=== PATIENT | male | born 1960 | race Caucasian/White ===

== ENCOUNTER 2019-11-20 15:41 | Emergency (ER) | payer OTHER ==
[~2019-11-20] VITALS: Ht 175.3 cm; Wt 73.6 kg
[2019-11-20] MEDS ORDERED: MULT1TAB61 PO (16:15)
[2019-11-20] MEDS ORDERED: THIAMINE HCL 100 MG TABLET PO ONE (16:30)
[2019-11-20] MEDS ORDERED: FOLIC ACID 1 MG TABLET PO ONE (16:30)
[2019-11-20 16:33] LABS: BASOPHILS % (AUTO) 0.8 % (0.0-2.0); EOSINOPHILS % (AUTO) 0.3 % (1.0-6.0); HEMATOCRIT 37.6 % (41-53); LYMPHOCYTES # (AUTO) 2.2 K/uL (1.0-4.8); LYMPHOCYTES % (AUTO) 22.3 % (22.0-44.0); MEAN CORPUSCULAR HEMOGLOBIN 32.3 pg (26.0-34.0); MEAN CORPUSCULAR HGB CONC 34.5 G/dL (31.0-37.0); MEAN CORPUSCULAR VOLUME 94 fL (80-100); MONOCYTES # (AUTO) 0.8 K/uL (0.1-1.0); MONOCYTES % (AUTO) 8.5 % (2.0-9.0); NEUTROPHILS # (AUTO) 6.7 K/uL (1.8-7.7); NEUTROPHILS % (AUTO) 68.1 % (40.0-70.0); PLATELET COUNT (AUTO) 428 K/uL (150-450); RED BLOOD CELL COUNT(AUTO) 4.02 MIL/uL (4.50-5.90); RED CELL DISTRIBUTION WIDTH 14.9 % (11.5-14.5)
[2019-11-20 16:43] LABS: ANION GAP 13 mmol/L (8-16); CALCIUM, TOTAL 8.5 mg/dL (8.8-10.5); CARBON DIOXIDE 26 mmol/L (22-29); CHLORIDE 103 mmol/L (98-107); CREATININE 0.55 mg/dL (0.60-1.30); GLOMERULAR FILTR. RATE CALC > 60 mL/min (>60); GLUCOSE,RANDOM 67 mg/dL (70-110); POTASSIUM 3.6 mmol/L (3.5-5.1); SODIUM SERUM 142 mmol/L (136-145); UREA NITROGEN, BLOOD 10 mg/dL (7-18)
[2019-11-20 16:49] LABS: ALANINE AMINOTRANSFERASE 51 U/L (12-78); ALBUMIN 3.2 g/dL (3.4-5.0); ALKALINE PHOSPHATASE 74 U/L (46-116); ASPARTATE AMINOTRANSFERASE 52 U/L (15-37); BILIRUBIN,TOTAL 0.5 mg/dL (0.1-1.0); TOTAL PROTEIN, SERUM 7.1 g/dL (6.4-8.2)
[2019-11-20 20:07] VITALS: BP 100/65
== END 2019-11-20 21:06 | disposition home or self-care (01) ==
LOC: EMS 15:41
DX: F10.129 Alcohol abuse with intoxication, unspecified (principal); F17.210 Nicotine dependence, cigarettes, uncomplicated; Z88.0 Allergy status to penicillin; Y90.7 Blood alcohol level of 200-239 mg/100 ml
CPT/HCPCS: 80053; 85025; 99283; G0480

== ENCOUNTER 2020-02-26 11:16 | Emergency (ER) | payer OTHER ==
[~2020-02-26] VITALS: Ht 175.3 cm; Wt 75.0 kg
[~2020-02-26 11:16] MED LIST: MULT1TAB61 PO
[2020-02-26] MEDS ORDERED: SODIUM CHLORIDE 0.9% 1,000 ML IV ONE (14:45)
[2020-02-26] MEDS ORDERED: LORazepam 2 MG/ML VIAL IM ONE (15:00)
[2020-02-26 15:14] LABS: BASOPHILS % (AUTO) 0.7 % (0.0-2.0); EOSINOPHILS % (AUTO) 0.1 % (1.0-6.0); HEMATOCRIT 48.3 % (41-53); HEMOGLOBIN 16.6 g/dL (13.5-17.5); LYMPHOCYTES # (AUTO) 2.6 K/uL (1.0-4.8); LYMPHOCYTES % (AUTO) 16.8 % (22.0-44.0); MEAN CORPUSCULAR HEMOGLOBIN 31.3 pg (26.0-34.0); MEAN CORPUSCULAR HGB CONC 34.4 G/dL (31.0-37.0); MEAN CORPUSCULAR VOLUME 91 fL (80-100); MONOCYTES # (AUTO) 0.8 K/uL (0.1-1.0); MONOCYTES % (AUTO) 5.4 % (2.0-9.0); NEUTROPHILS # (AUTO) 12.1 K/uL (1.8-7.7); PLATELET COUNT (AUTO) 270 K/uL (150-450); RED BLOOD CELL COUNT(AUTO) 5.31 MIL/uL (4.50-5.90); RED CELL DISTRIBUTION WIDTH 13.2 % (11.5-14.5)
[2020-02-26 15:34] LABS: PROTHROMBIN TIME 9.9 SEC (9.4-11.6)
[2020-02-26 15:38] LABS: ANION GAP 15 mmol/L (8-16); CALCIUM, TOTAL 9.7 mg/dL (8.8-10.5); CARBON DIOXIDE 27 mmol/L (22-29); CHLORIDE 103 mmol/L (98-107); CREATININE 0.74 mg/dL (0.60-1.30); GLOMERULAR FILTR. RATE CALC > 60 mL/min (>60); GLUCOSE,RANDOM 83 mg/dL (70-110); POTASSIUM 3.8 mmol/L (3.5-5.1); SODIUM SERUM 145 mmol/L (136-145); UREA NITROGEN, BLOOD 18 mg/dL (7-18)
[2020-02-26 15:52] LABS: B-TYPE NATRIURETIC PEPTIDE 5 pg/mL (0-100)
[2020-02-26 16:03] LABS: ALANINE AMINOTRANSFERASE 51 U/L (12-78); ALBUMIN 5.1 g/dL (3.4-5.0); ALKALINE PHOSPHATASE 77 U/L (46-116); ASPARTATE AMINOTRANSFERASE 66 U/L (15-37); BILIRUBIN,TOTAL 0.7 mg/dL (0.1-1.0); CREATINE KINASE, TOTAL ONLY 280 U/L (39-308); TOTAL PROTEIN, SERUM 9.2 g/dL (6.4-8.2)
[2020-02-26 17:48] VITALS: BP 125/65
[2020-02-26 18:07] LABS: APPEARANCE,URINE CLEAR (CLEAR); BILIRUBIN,URINE NEGATIVE (NEGATIVE); GLUCOSE, URINE (UA) NEGATIVE (NEGATIVE); KETONES,URINE 40 mg/dL (NEGATIVE); LEUKOCYTE ESTERASE ,URINE NEGATIVE (NEGATIVE); NITRATE,URINE NEGATIVE (NEGATIVE); OCCULT BLOOD,URINE NEGATIVE (NEGATIVE); PROTEIN,URINE POS 1+ (NEGATIVE)
[2020-02-26 18:09] LABS: AMPHET/METH SCREEN,URINE NEGATIVE (NEGATIVE); BARBITURATE SCREEN, URINE NEGATIVE (NEGATIVE); BENZODIAZEPINES SCREEN,URINE NEGATIVE (NEGATIVE); CANNABINOID SCREEN,URINE POSITIVE (NEGATIVE); COCAINE SCREEN,URINE NEGATIVE (NEGATIVE); METHADONE SCREEN, URINE NEGATIVE (NEGATIVE); OPIATE SCREEN,URINE NEGATIVE (NEGATIVE)
[2020-02-26 18:13] LABS: PHENCYCLIDINE SCREEN,URINE NEGATIVE (NEGATIVE)
[2020-02-26 18:32] LABS: BACTERIA,URINE None Seen /HPF (None Seen); RBC,URINE None Seen /HPF (0-2); SQUAMOUS EPITHELIAL CELL,UR None Seen /LPF (None Seen); WBC,URINE None Seen /HPF (0-5)
== END 2020-02-26 18:38 | disposition left against medical advice (07) ==
LOC: EMS 11:16
DX: F10.129 Alcohol abuse with intoxication, unspecified (principal); R79.1 Abnormal coagulation profile; R79.89 Other specified abnormal findings of blood chemistry; D72.829 Elevated white blood cell count, unspecified; F17.210 Nicotine dependence, cigarettes, uncomplicated; Y90.8 Blood alcohol level of 240 mg/100 ml or more
CPT/HCPCS: 36415; 71045; 80053; 80307; 81001; 82550; 83880; 84484; 85025; 85610; 85730; 93005; 96372; 99285; G0480; J2060; J7030

== ENCOUNTER 2022-08-18 07:47 | Emergency (ER) | payer MEDICARE, OTHER ==
[~2022-08-18] VITALS: Ht 170.2 cm; Wt 81.8 kg
[2022-08-18 12:38] VITALS: BP 148/93
== END 2022-08-18 14:24 | disposition home or self-care (01) ==
LOC: EMS 07:54
DX: F10.229 Alcohol dependence with intoxication, unspecified (principal); F17.210 Nicotine dependence, cigarettes, uncomplicated
CPT/HCPCS: 99283

== ENCOUNTER 2023-10-22 13:47 | Emergency (ER) | payer OTHER, MEDICARE ==
[~2023-10-22] VITALS: Ht 175.3 cm; Wt 72.7 kg
[2023-10-22 13:55] VITALS: BP 129/98; PULSE 106; RESP 20; TEMP 98.2
[2023-10-22 14:11] LABS: GLUCOMETER DEV NAME(LOC) ERT.5; GLUCOSE,POINT OF CARE 98 MG/DL (70-110)
== END 2023-10-22 14:39 | disposition still patient (30) ==
LOC: EMS 13:49
DX: F10.90 Alcohol use, unspecified, uncomplicated (principal); Z53.21 Procedure and treatment not carried out due to patient leaving prior to being seen by health care provider; Y90.9 Presence of alcohol in blood, level not specified
CPT/HCPCS: 82962; 99281

== ENCOUNTER 2023-10-22 17:46 | Emergency (ER) | payer OTHER ==
[~2023-10-22] VITALS: Ht 175.3 cm; Wt 72.7 kg
[2023-10-22 18:04] VITALS: TEMP 98.2
[2023-10-22] MEDS ORDERED: SODIUM CHLORIDE 0.9% 1,000 ML IV ONE (18:15)
[2023-10-22 19:43] LABS: ANION GAP 17 mmol/L (8-16); CALCIUM, TOTAL 9.2 mg/dL (8.8-10.5); CARBON DIOXIDE 20 mmol/L (22-29); CHLORIDE 108 mmol/L (98-107); CREATININE 0.61 mg/dL (0.60-1.30); GLOMERULAR FILTR. RATE CALC > 60 mL/min (>60); GLUCOSE,RANDOM 85 mg/dL (70-110); POTASSIUM 3.5 mmol/L (3.5-5.1); SODIUM SERUM 145 mmol/L (136-145); UREA NITROGEN, BLOOD 17 mg/dL (7-18)
[2023-10-22 19:49] LABS: ALANINE AMINOTRANSFERASE 14 U/L (12-78); ALBUMIN 3.9 g/dL (3.4-5.0); ALKALINE PHOSPHATASE 83 U/L (46-116); ASPARTATE AMINOTRANSFERASE 26 U/L (15-37); BILIRUBIN,TOTAL 0.2 mg/dL (0.1-1.0); TOTAL PROTEIN, SERUM 7.3 g/dL (6.4-8.2)
[2023-10-22 19:53] LABS: ALCOHOL, BLOOD (SERUM) 267 mg/dL (0-10)
[2023-10-22 20:32] VITALS: BP 128/68; PULSE 76; RESP 14
[2023-10-22 21:43] LABS: APPEARANCE,URINE CLEAR (CLEAR); BILIRUBIN,URINE NEGATIVE (NEGATIVE); COLOR,URINE COLORLESS (YELLOW); GLUCOSE, URINE (UA) NEGATIVE (NEGATIVE); KETONES,URINE NEGATIVE (NEGATIVE); LEUKOCYTE ESTERASE ,URINE NEGATIVE (NEGATIVE); NITRATE,URINE NEGATIVE (NEGATIVE); OCCULT BLOOD,URINE NEGATIVE (NEGATIVE); PROTEIN,URINE NEGATIVE (NEGATIVE); SPECIFIC GRAVITIY, URINE 1.009 (1.003-1.030); UROBILINOGEN,URINE <=1.0 mg/dL (<=1.0)
[2023-10-22 21:50] LABS: ALCOHOL, URINE DRUG SCREEN POSITIVE (NEGATIVE); AMPHET/METH SCREEN,URINE NEGATIVE (NEGATIVE); BARBITURATE SCREEN, URINE NEGATIVE (NEGATIVE); BENZODIAZEPINES SCREEN,URINE NEGATIVE (NEGATIVE); CANNABINOID SCREEN,URINE POSITIVE (NEGATIVE); COCAINE SCREEN,URINE NEGATIVE (NEGATIVE); METHADONE SCREEN, URINE NEGATIVE (NEGATIVE); OPIATE SCREEN,URINE NEGATIVE (NEGATIVE); PHENCYCLIDINE SCREEN,URINE NEGATIVE (NEGATIVE)
== END 2023-10-22 22:09 | disposition home or self-care (01) ==
LOC: EMS 17:47
DX: F10.229 Alcohol dependence with intoxication, unspecified (principal); I10 Essential (primary) hypertension; F17.210 Nicotine dependence, cigarettes, uncomplicated; Z88.0 Allergy status to penicillin; Y90.9 Presence of alcohol in blood, level not specified
CPT/HCPCS: 99283; 96360; 80053; 81003; 83735; 36415; 80307; J7030; G0480

== ENCOUNTER 2024-08-02 11:19 | Emergency (ER) | payer MEDICARE, OTHER ==
[~2024-08-02] VITALS: Ht 175.3 cm; Wt 75.0 kg
[2024-08-02 11:28] VITALS: TEMP 97.6
[2024-08-02 12:45] LABS: ANION GAP 17 mmol/L (8-16); CALCIUM, TOTAL 8.6 mg/dL (8.8-10.5); CARBON DIOXIDE 24 mmol/L (22-29); CHLORIDE 99 mmol/L (98-107); CREATININE 0.55 mg/dL (0.60-1.30); GLOMERULAR FILTR. RATE CALC > 60 mL/min (>60); GLUCOSE,RANDOM 116 mg/dL (70-110); POTASSIUM 3.9 mmol/L (3.5-5.1); SODIUM SERUM 140 mmol/L (136-145); UREA NITROGEN, BLOOD 24 mg/dL (7-18)
[2024-08-02 13:05] LABS: ALCOHOL, BLOOD (SERUM) 378 mg/dL (0-10)
[2024-08-02 13:09] LABS: BASOPHILS % (AUTO) 0.1 % (0.0-2.0); EOSINOPHILS % (AUTO) 0 % (1.0-6.0); HEMATOCRIT 48.4 % (41-53); HEMOGLOBIN 16.7 g/dL (13.5-17.5); LYMPHOCYTES # (AUTO) 1.1 K/uL (1.0-4.8); LYMPHOCYTES % (AUTO) 7.5 % (22.0-44.0); MEAN CORPUSCULAR HEMOGLOBIN 32.4 pg (26.0-34.0); MEAN CORPUSCULAR HGB CONC 34.4 G/dL (31.0-37.0); MEAN CORPUSCULAR VOLUME 94 fL (80-100); MONOCYTES # (AUTO) 1.2 K/uL (0.1-1.0); MONOCYTES % (AUTO) 8.4 % (2.0-9.0); NEUTROPHILS # (AUTO) 12.2 K/uL (1.8-7.7); PLATELET COUNT (AUTO) 280 K/uL (150-450); RED BLOOD CELL COUNT(AUTO) 5.15 MIL/uL (4.50-5.90); RED CELL DISTRIBUTION WIDTH 13.8 % (11.5-14.5); WHITE BLOOD COUNT (AUTO) 14.6 K/uL (4.5-11.0)
[2024-08-02 14:00] VITALS: BP 140/94; PULSE 109; RESP 15; O2SAT 98
== END 2024-08-02 17:55 | disposition home or self-care (01) ==
LOC: EMS 11:19
DX: F10.229 Alcohol dependence with intoxication, unspecified (principal); F17.210 Nicotine dependence, cigarettes, uncomplicated; I10 Essential (primary) hypertension; Z88.0 Allergy status to penicillin; Y90.8 Blood alcohol level of 240 mg/100 ml or more
CPT/HCPCS: 99283; 80048; 85025; 36415; G0480

== ENCOUNTER 2024-10-17 13:07 | Emergency (ER) | payer MEDICARE, OTHER ==
[~2024-10-17] VITALS: Ht 170.2 cm; Wt 75.0 kg
[2024-10-17 13:16] VITALS: TEMP 98.2
[2024-10-17] MEDS: BACITRACIN 0.9 GM PACKET OINTMENT TP ONE (15:46)
[2024-10-17 16:58] VITALS: BP 129/74; PULSE 68; RESP 17; O2SAT 98
== END 2024-10-17 20:07 | disposition home or self-care (01) ==
LOC: EMS 13:07
DX: S00.01XA Abrasion of scalp, initial encounter (principal); E11.9 Type 2 diabetes mellitus without complications; I10 Essential (primary) hypertension; F17.210 Nicotine dependence, cigarettes, uncomplicated; Z88.0 Allergy status to penicillin; W22.8XXA Striking against or struck by other objects, initial encounter; Y93.89 Activity, other specified; Y92.89 Other specified places as the place of occurrence of the external cause; Y99.8 Other external cause status
CPT/HCPCS: 70450; 72125; 82962; 99284

== ENCOUNTER 2025-01-07 15:20 | Inpatient (IN) | payer MEDICARE, OTHER ==
[~2025-01-07] VITALS: Ht 167.6 cm; Wt 60.0 kg
[~2025-01-07 15:20] MED LIST changes: +ACET-2247 PO; +CYAN500T77 PO; +DOCU-385 PO; +FOLI-130 PO; +MAGN-169 PO; +METO25 PO; +MULT-1303 PO; -MULT1TAB61 PO; +PANT-31 PO; +SENN-376 PO; +THIA100T80 PO
[2025-01-07] MEDS: SODIUM CHLORIDE 0.9% 1,000 ML IV ONE ×2 (19:30→22:59)
[2025-01-07 19:42] LABS: BASOPHILS % (AUTO) 0.4 % (0.0-2.0); EOSINOPHILS % (AUTO) 0.3 % (1.0-6.0); HEMATOCRIT 41.6 % (41-53); HEMOGLOBIN 14.2 g/dL (13.5-17.5); LYMPHOCYTES % (AUTO) 12.8 % (22.0-44.0); MEAN CORPUSCULAR HEMOGLOBIN 31.9 pg (26.0-34.0); MEAN CORPUSCULAR VOLUME 94 fL (80-100); NEUTROPHILS # (AUTO) 5.5 K/uL (1.8-7.7); NEUTROPHILS % (AUTO) 73.5 % (40.0-70.0); PLATELET COUNT (AUTO) 247 K/uL (150-450); RED BLOOD CELL COUNT(AUTO) 4.44 MIL/uL (4.50-5.90); RED CELL DISTRIBUTION WIDTH 13.3 % (11.5-14.5); WHITE BLOOD COUNT (AUTO) 7.5 K/uL (4.5-11.0)
[2025-01-07 19:53] LABS: ANION GAP 10 mmol/L (8-16); CALCIUM, TOTAL 8.5 mg/dL (8.8-10.5); CARBON DIOXIDE 27 mmol/L (22-29); CHLORIDE 103 mmol/L (98-107); CREATININE 0.48 mg/dL (0.60-1.30); GLOMERULAR FILTR. RATE CALC > 60 mL/min (>60); GLUCOSE,RANDOM 95 mg/dL (70-110); POTASSIUM 3.8 mmol/L (3.5-5.1); SODIUM SERUM 140 mmol/L (136-145); UREA NITROGEN, BLOOD 11 mg/dL (7-18)
[2025-01-07 19:59] LABS: ALBUMIN 3.2 g/dL (3.4-5.0); BILIRUBIN,DIRECT 0.2 mg/dL (0.00-0.20); BILIRUBIN,TOTAL 0.4 mg/dL (0.1-1.0); TOTAL PROTEIN, SERUM 7.1 g/dL (6.4-8.2)
[2025-01-07 20:06] LABS: TROPONIN I-HIGH SENSITIVITY 413 ng/L (<76)
[2025-01-07 20:23] LABS: ALCOHOL, BLOOD (SERUM) 276 mg/dL (0-10)
[2025-01-07] MEDS ORDERED: APIX5TAB PO (21:58)
[2025-01-07] MEDS ORDERED: SENNOSIDES 8.6 MG TABLET PO PRN (22:00)
[2025-01-07] MEDS ORDERED: DOCUSATE SODIUM 100 MG CAPSULE PO PRN (22:00)
[2025-01-07] MEDS ORDERED: MAGNESIUM HYDROXIDE SUSPENSION 30 ML UDCUP PO PRN (22:00)
[2025-01-07 22:38] LABS: TROPONIN I-HIGH SENSITIVITY 420 ng/L (<76)
[2025-01-07 22:40] LABS: LACTIC ACID 2.2 mmol/L (0.4-2.0)
[2025-01-07] MEDS: CefTRIAXone 1 GM/DEXTROSE 50 ML IV ONE (22:45)
[2025-01-07] MEDS ORDERED: SODIUM CHLORIDE 0.9% 100 ML ONE (22:53)
[2025-01-07] MEDS ORDERED: IOHEXOL 350 MG/ML 100 ML VIAL ONE (22:53)
[2025-01-07] MEDS: ASPIRIN 81 MG CHEWABLE TABLET PO ONE (22:58)
[2025-01-07] MEDS: AZITHROMYCIN 500 MG/NS 250 ML IV ONE (22:59)
[2025-01-07] MEDS: METOPROLOL TARTRATE 25 MG TABLET PO SCH (23:31)
[2025-01-08 00:31] LABS: TROPONIN I-HIGH SENSITIVITY 387 ng/L (<76)
[2025-01-08 02:45] VITALS: BP 143/81; PULSE 95; RESP 20; TEMP 99.3; O2SAT 94
[2025-01-08] MEDS: LORazepam 2 MG TABLET PO PRN ×2 (02:50→23:59)
[2025-01-08] MEDS: 1: MAGNESIUM SULFATE 2 GM, MVI, ADULT NO.1 WITH VIT K 10 ML, THIAMINE 100 MG, FOLIC ACID IV SCH ×2 (02:58→09:26)
[2025-01-08] MEDS: CLINDAMYCIN 300 MG/D5% WATER 50 ML IV SCH (03:18)
[2025-01-08 04:08] LABS: APPEARANCE,URINE CLEAR (CLEAR); BILIRUBIN,URINE NEGATIVE (NEGATIVE); COLOR,URINE LIGHT YELLOW (YELLOW); GLUCOSE, URINE (UA) NEGATIVE (NEGATIVE); LEUKOCYTE ESTERASE ,URINE NEGATIVE (NEGATIVE); NITRATE,URINE NEGATIVE (NEGATIVE); OCCULT BLOOD,URINE NEGATIVE (NEGATIVE); PH,URINE 6.5 (5.0-8.0); PH,URINE DRUG SCREEN 6.5 (5.0-8.0); PROTEIN,URINE NEGATIVE (NEGATIVE); SPECIFIC GRAVITIY, URINE 1.037 (1.003-1.030); UROBILINOGEN,URINE <=1.0 mg/dL (<=1.0)
[2025-01-08 04:15] LABS: ALCOHOL, URINE DRUG SCREEN POSITIVE (NEGATIVE); AMPHET/METH SCREEN,URINE NEGATIVE (NEGATIVE); BARBITURATE SCREEN, URINE NEGATIVE (NEGATIVE); BENZODIAZEPINES SCREEN,URINE NEGATIVE (NEGATIVE); CANNABINOID SCREEN,URINE POSITIVE (NEGATIVE); COCAINE SCREEN,URINE NEGATIVE (NEGATIVE); METHADONE SCREEN, URINE NEGATIVE (NEGATIVE); OPIATE SCREEN,URINE NEGATIVE (NEGATIVE); PHENCYCLIDINE SCREEN,URINE NEGATIVE (NEGATIVE)
[2025-01-08 05:59] LABS: BASOPHILS % (AUTO) 0.4 % (0.0-2.0); EOSINOPHILS % (AUTO) 0.1 % (1.0-6.0); HEMATOCRIT 34.7 % (41-53); HEMOGLOBIN 12.1 g/dL (13.5-17.5); LYMPHOCYTES # (AUTO) 0.9 K/uL (1.0-4.8); LYMPHOCYTES % (AUTO) 9.7 % (22.0-44.0); MEAN CORPUSCULAR HEMOGLOBIN 32.2 pg (26.0-34.0); MEAN CORPUSCULAR HGB CONC 34.7 G/dL (31.0-37.0); MEAN CORPUSCULAR VOLUME 93 fL (80-100); MONOCYTES # (AUTO) 1.5 K/uL (0.1-1.0); NEUTROPHILS # (AUTO) 6.9 K/uL (1.8-7.7); NEUTROPHILS % (AUTO) 73.8 % (40.0-70.0); PLATELET COUNT (AUTO) 199 K/uL (150-450); RED BLOOD CELL COUNT(AUTO) 3.74 MIL/uL (4.50-5.90); WHITE BLOOD COUNT (AUTO) 9.4 K/uL (4.5-11.0)
[2025-01-08 06:06] LABS: ANION GAP 8 mmol/L (8-16); CARBON DIOXIDE 27 mmol/L (22-29); CHLORIDE 101 mmol/L (98-107); CREATININE 0.46 mg/dL (0.60-1.30); GLOMERULAR FILTR. RATE CALC > 60 mL/min (>60); GLUCOSE,RANDOM 74 mg/dL (70-110); POTASSIUM 3.5 mmol/L (3.5-5.1); SODIUM SERUM 136 mmol/L (136-145); UREA NITROGEN, BLOOD 7 mg/dL (7-18)
[2025-01-08] MEDS: LORazepam 2 MG TABLET PO SCH (08:36)
[2025-01-08] MEDS: FOLIC ACID 1 MG TABLET PO SCH (08:37)
[2025-01-08] MEDS: APIXABAN 5 MG TABLET PO SCH (08:37)
[2025-01-08] MEDS: MULTIVITAMINS WITH MINERALS, THERAPEUTIC TABLET PO SCH (08:37)
[2025-01-08] MEDS: THIAMINE 100 MG TABLET PO SCH (08:37)
[2025-01-08] MEDS: PANTOPRAZOLE SODIUM 40 MG DR TABLET PO SCH (08:38)
[2025-01-08] MEDS: CYANOCOBALAMIN 500 MCG TABLET PO SCH (08:38)
[2025-01-08 09:05] VITALS: BP_SYST 136; BP_DIAS 7; BP_DIAS 72; PULSE 96; RESP 18; TEMP 98.9; O2SAT 93
[2025-01-08 11:12] VITALS: BP 139/79; PULSE 87; RESP 18; TEMP 98.8; O2SAT 92
[2025-01-08 16:14] VITALS: BP 134/75; PULSE 94; RESP 17; TEMP 98.1; O2SAT 93
[2025-01-08] MEDS: ASPIRIN 81 MG CHEWABLE TABLET PO SCH (20:13)
[2025-01-08 20:14] VITALS: BP 137/86; PULSE 97; RESP 18; TEMP 98.2; O2SAT 97
[2025-01-08] MEDS: NYSTATIN 15 GM POWDER BOTTLE TP SCH (20:14)
[2025-01-08] MEDS: ACETAMINOPHEN 325 MG TABLET PO PRN (23:07)
[2025-01-08 23:59] VITALS: BP 146/89; PULSE 92; RESP 18; TEMP 98.6; O2SAT 98
[2025-01-09 03:46] VITALS: BP 132/95; PULSE 91; RESP 19; TEMP 98.5; O2SAT 95
[2025-01-09 07:07] VITALS: BP 142/91; PULSE 90; RESP 18; TEMP 98.2; O2SAT 96
[2025-01-09 07:56] LABS: BASOPHILS % (AUTO) 0.3 % (0.0-2.0); EOSINOPHILS % (AUTO) 0.5 % (1.0-6.0); HEMATOCRIT 38.2 % (41-53); LYMPHOCYTES # (AUTO) 1.2 K/uL (1.0-4.8); LYMPHOCYTES % (AUTO) 17.3 % (22.0-44.0); MEAN CORPUSCULAR HEMOGLOBIN 31.8 pg (26.0-34.0); MEAN CORPUSCULAR HGB CONC 34.1 G/dL (31.0-37.0); MEAN CORPUSCULAR VOLUME 93 fL (80-100); MONOCYTES % (AUTO) 15.2 % (2.0-9.0); NEUTROPHILS # (AUTO) 4.5 K/uL (1.8-7.7); NEUTROPHILS % (AUTO) 66.7 % (40.0-70.0); PLATELET COUNT (AUTO) 175 K/uL (150-450); RED BLOOD CELL COUNT(AUTO) 4.09 MIL/uL (4.50-5.90); RED CELL DISTRIBUTION WIDTH 13.4 % (11.5-14.5); WHITE BLOOD COUNT (AUTO) 6.8 K/uL (4.5-11.0)
[2025-01-09 08:12] LABS: ANION GAP 7 mmol/L (8-16); CALCIUM, TOTAL 8.8 mg/dL (8.8-10.5); CARBON DIOXIDE 26 mmol/L (22-29); CHLORIDE 102 mmol/L (98-107); CREATININE 0.53 mg/dL (0.60-1.30); GLOMERULAR FILTR. RATE CALC > 60 mL/min (>60); GLUCOSE,RANDOM 103 mg/dL (70-110); POTASSIUM 3.8 mmol/L (3.5-5.1); SODIUM SERUM 135 mmol/L (136-145); UREA NITROGEN, BLOOD 9 mg/dL (7-18)
[2025-01-09 08:44] LABS: CREATINE KINASE, TOTAL ONLY 121 U/L (39-308)
[2025-01-09 11:02] VITALS: BP 132/89; PULSE 89; RESP 18; TEMP 98.3; O2SAT 96
[2025-01-09] MEDS ORDERED: APIX5TAB PO (12:55)
[2025-01-09] MEDS ORDERED: METO25 PO (12:55)
[2025-01-09] MEDS ORDERED: CLIN300C58 PO (12:55)
[2025-01-09] MEDS ORDERED: FOLI-130 PO (12:55)
[2025-01-09] MEDS ORDERED: MULT-1303 PO (12:55)
[2025-01-09] MEDS ORDERED: ASPI-1450 PO (12:55)
[2025-01-09 16:15] VITALS: BP 136/88; PULSE 91; RESP 18; TEMP 98; O2SAT 95
[2025-01-09 19:24] VITALS: BP 140/95; PULSE 97; RESP 17; TEMP 98.1; O2SAT 99
[2025-01-09] MEDS: METOPROLOL TARTRATE 25 MG TABLET PO SCH (20:47)
[2025-01-10 00:01] VITALS: BP 150/86; PULSE 81; RESP 16; TEMP 97.7; O2SAT 96
[2025-01-10 04:01] VITALS: BP 125/85; PULSE 87; RESP 17; TEMP 98.4; O2SAT 98
[2025-01-10] MEDS ORDERED: LORazepam 1 MG TABLET PO PRN (07:00)
[2025-01-10 07:32] VITALS: BP 121/98; PULSE 115; RESP 18; TEMP 97.9; O2SAT 98
[2025-01-10] MEDS: LORazepam 1 MG TABLET PO SCH (08:41)
[2025-01-10 12:00] VITALS: BP 129/81; PULSE 91; RESP 18; TEMP 98.1; O2SAT 98
[2025-01-10 15:31] VITALS: BP 111/82; PULSE 103; RESP 19; TEMP 97.7; O2SAT 98
[2025-01-10 15:57] LABS: ANION GAP 6 mmol/L (8-16); CALCIUM, TOTAL 9.4 mg/dL (8.8-10.5); CARBON DIOXIDE 26 mmol/L (22-29); CHLORIDE 102 mmol/L (98-107); CREATININE 1.02 mg/dL (0.60-1.30); GLOMERULAR FILTR. RATE CALC > 60 mL/min (>60); GLUCOSE,RANDOM 126 mg/dL (70-110); POTASSIUM 4.2 mmol/L (3.5-5.1); SODIUM SERUM 134 mmol/L (136-145); UREA NITROGEN, BLOOD 7 mg/dL (7-18)
[2025-01-10 16:18] LABS: BASOPHILS % (AUTO) 0.3 % (0.0-2.0); EOSINOPHILS % (AUTO) 0.8 % (1.0-6.0); HEMATOCRIT 41.4 % (41-53); LYMPHOCYTES # (AUTO) 1.1 K/uL (1.0-4.8); LYMPHOCYTES % (AUTO) 15.2 % (22.0-44.0); MEAN CORPUSCULAR HEMOGLOBIN 31.4 pg (26.0-34.0); MEAN CORPUSCULAR HGB CONC 33.7 G/dL (31.0-37.0); MEAN CORPUSCULAR VOLUME 93 fL (80-100); MONOCYTES % (AUTO) 13.9 % (2.0-9.0); NEUTROPHILS % (AUTO) 69.8 % (40.0-70.0); PLATELET COUNT (AUTO) 203 K/uL (150-450); RED BLOOD CELL COUNT(AUTO) 4.45 MIL/uL (4.50-5.90); RED CELL DISTRIBUTION WIDTH 13.1 % (11.5-14.5); WHITE BLOOD COUNT (AUTO) 7.2 K/uL (4.5-11.0)
[2025-01-10 20:25] VITALS: BP 99/78; PULSE 98; RESP 17; TEMP 98.4; O2SAT 98
[2025-01-11 00:12] VITALS: BP 106/67; PULSE 90; RESP 15; TEMP 99; O2SAT 97
[2025-01-11 03:49] VITALS: BP 119/84; PULSE 84; RESP 18; TEMP 98.1; O2SAT 97
[2025-01-11 04:31] LABS: GLUCOMETER DEV NAME(LOC) 5S.2D; GLUCOSE,POINT OF CARE 131 MG/DL (70-110)
[2025-01-11 07:20] VITALS: BP 127/92; PULSE 87; RESP 18; TEMP 98; O2SAT 96
[2025-01-11] MEDS: ONDANSETRON HCL 4 MG/2 ML VIAL IVP PRN (08:42)
[2025-01-11] MEDS: LORazepam 1 MG TABLET PO PRN (08:48)
[2025-01-11 11:50] VITALS: BP 119/80; PULSE 89; RESP 19; TEMP 97.8; O2SAT 96
[2025-01-11 15:20] VITALS: BP 114/69; PULSE 88; RESP 18; TEMP 97.9; O2SAT 97
[2025-01-11 19:58] VITALS: BP 109/67; PULSE 91; RESP 18; TEMP 99; O2SAT 98
[2025-01-12] MEDS: NICOTINE 14 MG/24 HOUR PATCH TD SCH (00:37)
[2025-01-12 04:30] VITALS: BP 107/75; PULSE 81; RESP 18; TEMP 97.9; O2SAT 95
[2025-01-12 08:50] VITALS: BP 112/72; PULSE 89; RESP 20; TEMP 97.8; O2SAT 97
[2025-01-12] MEDS ORDERED: NICOTINE 14 MG/24 HOUR PATCH TD SCH (09:00)
[2025-01-12] MEDS: CLINDAMYCIN HCL 300 MG CAPSULE PO SCH (17:00)
[2025-01-12 20:38] VITALS: BP 114/72; PULSE 97; RESP 18; TEMP 98.1; O2SAT 96
[2025-01-13 06:03] VITALS: BP 125/85; PULSE 88; RESP 18; TEMP 97.9; O2SAT 97
[2025-01-13 08:16] VITALS: BP 121/88; PULSE 84; RESP 20; TEMP 98.1; O2SAT 97
[2025-01-13 16:22] VITALS: BP 130/94; PULSE 94; RESP 20; TEMP 98.6; O2SAT 99
== END 2025-01-13 18:58 | DRG 177 ==
LOC: EMS 15:20 → EDH 21:54 → 5S 01-08 02:27 → 6S 01-11 19:39
PROVIDERS: ADMIT Internal Medicine; ATTEND Internal Medicine
DX: J69.0 Pneumonitis due to inhalation of food and vomit (principal); J96.01 Acute respiratory failure with hypoxia; Z59.00 Homelessness unspecified; G93.40 Encephalopathy, unspecified; E11.9 Type 2 diabetes mellitus without complications; F10.229 Alcohol dependence with intoxication, unspecified; K70.10 Alcoholic hepatitis without ascites; I10 Essential (primary) hypertension; Y90.8 Blood alcohol level of 240 mg/100 ml or more; Z88.0 Allergy status to penicillin; Z86.718 Personal history of other venous thrombosis and embolism; Z87.891 Personal history of nicotine dependence
CPT/HCPCS: 70450; 71045; 71275; 80048; 80076; 80307; 81003; 82550; 82962; 83605; 83735; 83880; 84484; 85025; 87040; 87081; 93005; 93306; 96361; 96365; 96368; 97116; 97163; 97166; 97530; 97535; 99285; G0378; G0480; J0456; J0696; J2405; J3411; J3475; J3490; J7030; J7050; 36415-L1; 36415-TC